=== PATIENT | female | born 1975 | race Caucasian/White ===

== ENCOUNTER 2018-03-20 11:21 | Emergency (ER) | payer SELFPAY ==
[2016-01-29 10:39] VITALS: Wt 77.1 kg
[~2018-03-20 11:21] MED LIST: DIA5 PO; HYDR-4309 PO; IBUP-1671 PO; MULT-859 PO; NIC10R INH; PROM-110 PO; TRAZ150T8 PO
[2018-03-20] MEDS ORDERED: ALPR-429 PO (12:14)
--- NOTE | 2018-03-20 12:15 | ER Report ---
History and Physical Time Seen By MD: 11:55 Hx. of Stated Complaint: pt reports a lot of stress in life, states she is withdrawing from alcohol- anxiety HPI/ROS CHIEF COMPLAINT: Anxiety HISTORY OF PRESENT ILLNESS: Patient is a 42-year-old female with no significant past medical history who presents to the emergency department with situational anxiety and depression. Patient states that she recently has not been sleeping well. She has moved in with her fianc who apparently snores she is also describing anxiety and some concerns about alcohol use. She feels anxious and depressed but denies any suicidal or homicidal ideation. Patient is being followed by a counselor and they are considering starting a mood stabilizer. REVIEW OF SYSTEMS: Respiratory: No cough, no dyspnea. Cardiovascular: No chest pain, no palpitations. Gastrointestinal: No vomiting, no abdominal pain. Musculoskeletal: No back pain. Allergies: Coded Allergies: No Known Drug Allergies (Unverified , 03/20/18) Home Meds Active Scripts Alprazolam (XANAX) 0.5 Mg Tablet, 1 TAB PO TID for anxiety, #20 TAB 0 Refills Prov:WARREN NESBITT MD 03/20/18 Past Medical/Surgical History Noncontributory towards this chief complaint Hx Smoking: Yes (1 PPD FOR 25 YEARS) Smoking Status: Current: Every Day Smoker Exposure to Second Hand Smoke?: Yes Hx Substance Use Disorder: No Hx Alcohol Use: No Constitutional Vital Sign - Last 24 Hours 03/20/18 11:35 Temp 97.4 Pulse 93 Resp 18 B/P (MAP) 141/88 Pulse Ox 99 O2 Delivery Room Air Physical Exam General Appearance: The patient is alert, has no immediate need for airway protection and no current signs of toxicity. Eyes: Pupils equal and round no injection. Respiratory: Chest is non tender, lungs are clear to auscultation. Cardiac: regular rate and rhythm Gastrointestinal: Abdomen is soft and non tender, no masses, bowel sounds normal. Musculoskeletal: Neck: Neck is supple and non tender. Extremities have full range of motion and are non tender. Skin: No rashes or lesions. Psychiatric: Anxious/depressed affect congruent with mood. No suicidal or homicidal ideation. No audiovisual hallucinations. Patient does not seem to be responding to any internal stimuli. Medical Decision Making ED Course/Re-evaluation ED Course Patient with situational anxiety and depression. Patient does have follow-up as an outpatient with a counselor is also some discussion of starting a mood stabilizer which I recommend. In the interim we'll prescribe a short course of Xanax for severe anxiety as needed. Decision to Disposition Date: Mar 20, 2018 Decision to Disposition Time: 12:12 Depart Departure Latest Vital Signs Vital Signs Date Time Temp Pulse Resp B/P (MAP) Pulse Ox O2 Delivery O2 Flow Rate FiO2 03/20/18 11:35 97.4 93 18 141/88 99 Room Air Impression: Primary Impression: Anxiety disorder, unspecified Condition: Improved Disposition: HOME OR SELF-CARE New Scripts Alprazolam (XANAX) 0.5 Mg Tablet 1 TAB PO TID for anxiety, #20 TAB 0 Refills Prov: WARREN NESBITT MD 03/20/18 Patient Instructions: Anxiety (DC) Problem Qualifiers Primary Impression: Anxiety disorder, unspecified Anxiety disorder type: unspecified anxiety disorder Qualified Codes: F41.9 - Anxiety disorder, unspecified WARREN NESBITT MD Mar 20, 2018 12:15
[2018-03-20 12:26] VITALS: BP 136/84
== END 2018-03-20 12:26 | disposition home or self-care (01) ==
LOC: ER 11:31
DX: F41.9 Anxiety disorder, unspecified (principal); F17.200 Nicotine dependence, unspecified, uncomplicated
CPT/HCPCS: 99283

== ENCOUNTER 2018-11-03 23:53 | Emergency (ER) | payer SELFPAY ==
[2016-01-29 10:39] VITALS: Wt 77.1 kg
[~2018-11-03 23:53] MED LIST changes: +ALPR-429 PO; -HYDR-4309 PO; +HYDR-653 PO
[2018-11-04] MEDS ORDERED: THIAMINE HCL(*) 200 MG/2 ML IN 100 MG, FOLIC ACID(*) 50 MG/10 ML INJ 1 MG, MULTIVITAMIN... IV ONE (00:07)
--- NOTE | 2018-11-04 00:13 | ER Report ---
History and Physical Time Seen By MD: 00:05 Hx. of Stated Complaint: PT REPORTS HER DAD A WEEK AGO AND PT STARTED DRINKING AGAIN. PT WANTS TO DETOX. HPI/ROS CHIEF COMPLAINT: Requesting detox HISTORY OF PRESENT ILLNESS: 43-year-old female presents with acute alcohol withdrawal symptoms. Patient's been vomiting. Patient began drinking last when her father . She's been unable to stop. Patient's been drinking vodka last drink was 1 hour prior to arrival. Patient has 2 previous admissions to [facility] for detox 10/2015 and 01/2016 each lasting a few days. REVIEW OF SYSTEMS: Respiratory: No cough, no dyspnea. Cardiovascular: No chest pain, no palpitations. Gastrointestinal: No vomiting, no abdominal pain. Musculoskeletal: No back pain. Allergies: Coded Allergies: No Known Drug Allergies (Unverified , 11/04/18) Home Meds Discontinued Scripts Alprazolam (XANAX) 0.5 Mg Tablet, 1 TAB PO TID for anxiety, #20 TAB 0 Refills Prov:WARREN NESBITT MD 03/20/18 Past Medical/Surgical History Hypertension, ran out of meds Hx Smoking: Yes (1 PPD FOR 25 YEARS) Smoking Status: Current: Every Day Smoker Exposure to Second Hand Smoke?: Yes Hx Substance Use Disorder: No Hx Alcohol Use: No Constitutional Vital Sign - Last 24 Hours 11/03/18 11/04/18 11/04/18 11/04/18 23:59 00:04 00:38 00:43 Temp 98.4 Pulse 85 92 89 Resp 16 B/P (MAP) 121/93 121/93 (102) Pulse Ox 93 93 91 O2 Delivery Room Air 11/04/18 11/04/18 11/04/18 11/04/18 01:09 01:13 01:28 01:43 Pulse 82 93 83 B/P (MAP) 138/96 (110) Pulse Ox 94 95 89 11/04/18 01:52 Pulse Ox 89 Intake and Output 11/03/18 11/03/18 11/04/18 15:00 23:00 07:00 Intake Total 1015.2 ml Balance 1015.2 ml Physical Exam Vital signs stable, afebrile, pulse ox normal General Appearance: The patient is alert, has no immediate need for airway protection and no current signs of toxicity. Mild distress, alert and oriented HEENT: Pupils equal and round no injection. Oropharynx without redness or exudate, heavy odor of EtOH Respiratory: Chest is non tender, lungs are clear to auscultation. Cardiac: regular rate and rhythm Gastrointestinal: Abdomen is soft and non tender, no masses, bowel sounds normal. Musculoskeletal: Neck: Neck is supple and non tender. Extremities have full range of motion and are non tender. Skin: No rashes or lesions. DIFFERENTIAL DIAGNOSIS: After history and physical exam differential diagnosis was considered for depression including functional and major depression, situational depression, medication side effect, drugs and alcohol abuse/withdrawal. Medical Decision Making Data Points Result Diagram: 11/04/18 0025 11/04/18 0025 Laboratory Hematology Test 11/04/18 00:25 11/04/18 01:12 Red Blood Count 5.28 M/uL (4.17-5.56) Mean Corpuscular Volume 97.4 fL (80.0-96.0) Mean Corpuscular Hemoglobin 33.8 pg (26.0-33.0) Mean Corpuscular Hemoglobin Concent 34.7 g/dL (32.0-36.0) Red Cell Distribution Width 13.6 % (11.5-14.5) Mean Platelet Volume 8.6 fL (7.2-11.1) Neutrophils (%) (Auto) 64.0 % (39.4-72.5) Lymphocytes (%) (Auto) 26.6 % (17.6-49.6) Monocytes (%) (Auto) 3.4 % (4.1-12.4) Eosinophils (%) (Auto) 3.6 % (0.4-6.7) Basophils (%) (Auto) 2.4 % (0.3-1.4) Nucleated RBC Relative Count (auto) 0.3 /100WBC Neutrophils # (Auto) 5.7 K/uL (2.0-7.4) Lymphocytes # (Auto) 2.4 K/uL (1.3-3.6) Monocytes # (Auto) 0.3 K/uL (0.3-1.0) Eosinophils # (Auto) 0.3 K/uL (0.0-0.5) Basophils # (Auto) 0.2 K/uL (0.0-0.1) Nucleated RBC Absolute Count (auto) 0.02 K/uL Sodium Level 144 mmol/L (137-145) Potassium Level 3.9 mmol/L (3.5-5.0) Chloride Level 109 mmol/L (98-107) Carbon Dioxide Level 21 mmol/L (22-31) Blood Urea Nitrogen 11 mg/dl (7-18) Creatinine 0.80 mg/dl (0.52-1.04) Glomerular Filtration Rate Calc > 60.0 Random Glucose 97 mg/dl (75-110) Calcium Level 9.2 mg/dl (8.4-10.2) Magnesium Level 2.2 mg/dl (1.7-2.2) Total Bilirubin 0.3 mg/dl (0.2-1.3) Aspartate Amino Transf (AST/SGOT) 48 U/L (0-35) Alanine Aminotransferase (ALT/SGPT) 37 U/L (0-56) Alkaline Phosphatase 74 U/L (0-126) Total Protein 8.1 g/dl (6.3-8.2) Albumin 4.8 g/dl (3.5-5.0) Salicylates Level < 10 mg/L Salicylate Last Dose Date unk Acetaminophen Level < 10 ug/ml Serum Alcohol 323 mg/dl Urine Color Yellow Urine Clarity Slightly-cloudy Urine pH 5.0 pH (4.8-9.5) Urine Specific Morenci 1.006 Urine Protein Negative mg/dL (NEGATIVE) Urine Glucose (UA) Negative mg/dL (NEGATIVE) Urine Ketones Negative mg/dL (NEGATIVE) Urine Blood Negative (NEGATIVE) Urine Nitrite Negative (NEGATIVE) Urine Bilirubin Negative (NEGATIVE) Urine Urobilinogen Negative mg/dL (0.2-1.9) Urine Leukocyte Esterase Trace (NEGATIVE) Urine RBC 2 /HPF (0-2/HPF) Urine WBC 2 /HPF (0-5/HPF) Urine Squamous Epithelial Cells Many /LPF (</=FEW) Urine Amorphous Crystals Few /HPF Urine Bacteria Few /HPF (NONE-FEW) Urine Mucus None /HPF (NONE-FEW) Urine HCG, Qualitative Negative (NEGATIVE) Urine Opiates Screen Negative Urine Barbiturates Screen Negative Ur Tricyclic Antidepressants Screen Negative Urine Phencyclidine Screen Negative Urine Amphetamines Screen Negative Urine Benzodiazepines Screen Negative Urine Cocaine Screen Negative Urine Cannabinoids Screen Negative Chemistry Test 11/04/18 00:25 11/04/18 01:12 White Blood Count 8.9 k/uL (4.5-11.0) Red Blood Count 5.28 M/uL (4.17-5.56) Hemoglobin 17.9 g/dL (12.0-16.0) Hematocrit 51.5 % (34.0-47.0) Mean Corpuscular Volume 97.4 fL (80.0-96.0) Mean Corpuscular Hemoglobin 33.8 pg (26.0-33.0) Mean Corpuscular Hemoglobin Concent 34.7 g/dL (32.0-36.0) Red Cell Distribution Width 13.6 % (11.5-14.5) Platelet Count 201 K/uL (150-450) Mean Platelet Volume 8.6 fL (7.2-11.1) Neutrophils (%) (Auto) 64.0 % (39.4-72.5) Lymphocytes (%) (Auto) 26.6 % (17.6-49.6) Monocytes (%) (Auto) 3.4 % (4.1-12.4) Eosinophils (%) (Auto) 3.6 % (0.4-6.7) Basophils (%) (Auto) 2.4 % (0.3-1.4) Nucleated RBC Relative Count (auto) 0.3 /100WBC Neutrophils # (Auto) 5.7 K/uL (2.0-7.4) Lymphocytes # (Auto) 2.4 K/uL (1.3-3.6) Monocytes # (Auto) 0.3 K/uL (0.3-1.0) Eosinophils # (Auto) 0.3 K/uL (0.0-0.5) Basophils # (Auto) 0.2 K/uL (0.0-0.1) Nucleated RBC Absolute Count (auto) 0.02 K/uL Glomerular Filtration Rate Calc > 60.0 Calcium Level 9.2 mg/dl (8.4-10.2) Magnesium Level 2.2 mg/dl (1.7-2.2) Total Bilirubin 0.3 mg/dl (0.2-1.3) Aspartate Amino Transf (AST/SGOT) 48 U/L (0-35) Alanine Aminotransferase (ALT/SGPT) 37 U/L (0-56) Alkaline Phosphatase 74 U/L (0-126) Total Protein 8.1 g/dl (6.3-8.2) Albumin 4.8 g/dl (3.5-5.0) Salicylates Level < 10 mg/L Salicylate Last Dose Date unk Acetaminophen Level < 10 ug/ml Serum Alcohol 323 mg/dl Urine Color Yellow Urine Clarity Slightly-cloudy Urine pH 5.0 pH (4.8-9.5) Urine Specific Morenci 1.006 Urine Protein Negative mg/dL (NEGATIVE) Urine Glucose (UA) Negative mg/dL (NEGATIVE) Urine Ketones Negative mg/dL (NEGATIVE) Urine Blood Negative (NEGATIVE) Urine Nitrite Negative (NEGATIVE) Urine Bilirubin Negative (NEGATIVE) Urine Urobilinogen Negative mg/dL (0.2-1.9) Urine Leukocyte Esterase Trace (NEGATIVE) Urine RBC 2 /HPF (0-2/HPF) Urine WBC 2 /HPF (0-5/HPF) Urine Squamous Epithelial Cells Many /LPF (</=FEW) Urine Amorphous Crystals Few /HPF Urine Bacteria Few /HPF (NONE-FEW) Urine Mucus None /HPF (NONE-FEW) Urine HCG, Qualitative Negative (NEGATIVE) Urine Opiates Screen Negative Urine Barbiturates Screen Negative Ur Tricyclic Antidepressants Screen Negative Urine Phencyclidine Screen Negative Urine Amphetamines Screen Negative Urine Benzodiazepines Screen Negative Urine Cocaine Screen Negative Urine Cannabinoids Screen Negative Toxicology Test 11/04/18 00:25 11/04/18 01:12 Salicylates Level < 10 mg/L Salicylate Last Dose Date unk Acetaminophen Level < 10 ug/ml Serum Alcohol 323 mg/dl Urine Opiates Screen Negative Urine Barbiturates Screen Negative Ur Tricyclic Antidepressants Screen Negative Urine Phencyclidine Screen Negative Urine Amphetamines Screen Negative Urine Benzodiazepines Screen Negative Urine Cocaine Screen Negative Urine Cannabinoids Screen Negative Urinalysis Test 11/04/18 01:12 Urine Color Yellow Urine Clarity Slightly-cloudy Urine pH 5.0 pH (4.8-9.5) Urine Specific Morenci 1.006 Urine Protein Negative mg/dL (NEGATIVE) Urine Glucose (UA) Negative mg/dL (NEGATIVE) Urine Ketones Negative mg/dL (NEGATIVE) Urine Blood Negative (NEGATIVE) Urine Nitrite Negative (NEGATIVE) Urine Bilirubin Negative (NEGATIVE) Urine Urobilinogen Negative mg/dL (0.2-1.9) Urine Leukocyte Esterase Trace (NEGATIVE) Urine RBC 2 /HPF (0-2/HPF) Urine WBC 2 /HPF (0-5/HPF) Urine Squamous Epithelial Cells Many /LPF (</=FEW) Urine Amorphous Crystals Few /HPF Urine Bacteria Few /HPF (NONE-FEW) Urine Mucus None /HPF (NONE-FEW) Urine HCG, Qualitative Negative (NEGATIVE) ED Course/Re-evaluation Clinical Indication for ER IV: Hydration, IV Access ED Course Patient was admitted to an examination room. H&P was done. The differential diagnoses was considered. Patient with heavy week of drinking since her father last . Patient tried to stop on her own at home. She was having horrible symptoms of withdrawal and vomiting. She now returns to the hospital requesting admission for medical detox. Patient was treated here in the emergency department with a banana bag. Her blood alcohol returned at 323. Her MCV was mildly elevated. 11/04/2018 1:45:01 am case discussed with Grazyna Live nurse practitioner a behavioral health who accepts the patient for medical detox Decision to Disposition Date: Nov 04, 2018 Decision to Disposition Time: 00:13 Depart Departure Latest Vital Signs Vital Signs Date Time Temp Pulse Resp B/P (MAP) Pulse Ox O2 Delivery O2 Flow Rate FiO2 11/04/18 01:52 89 11/04/18 01:43 83 11/04/18 01:09 138/96 (110) 11/03/18 23:59 98.4 16 Room Air Impression: Primary Impression: Alcohol use disorder, severe, dependence Additional Impression: Alcohol withdrawal Condition: Improved Disposition: XFER TO [facility] Problem Qualifiers Additional Impression: Alcohol withdrawal Complication of substance-induced condition: uncomplicated Qualified Codes: F10.230 - Alcohol dependence with withdrawal, uncomplicated NARENDRA DARLING DO Nov 04, 2018 00:13
[2018-11-04 00:45] LABS: PLATELET COUNT, AUTOMATED 201 K/uL (150-450)
[2018-11-04 01:09] VITALS: BP 138/96
== END 2018-11-04 02:23 ==
LOC: ER 11-04 00:10
DX: F10.230 Alcohol dependence with withdrawal, uncomplicated (principal); Y90.7 Blood alcohol level of 200-239 mg/100 ml; I10 Essential (primary) hypertension
CPT/HCPCS: 80305; 80320; 80329; 81001; 81025; 83735; 84443; 85025; 96365; 99284; J3411; J3475; J7030; 82040; 82247; 82310; 82374; 82435; 82565; 82947; 84075; 84132; 84155; 84295; 84450; 84460; 84520

== ENCOUNTER 2018-11-04 02:10 | Inpatient (IN) | payer SELFPAY ==
[2016-01-29 10:39] VITALS: Ht 177.8 cm; Wt 79.4 kg
[~2018-11-04] VITALS: Ht 177.8 cm; Wt 79.4 kg
[2018-11-04] VITALS (7 sets, daily range): BP systolic 103–153; BP diastolic 77–102
[2018-11-04] MEDS ORDERED: DIAZEPAM 10 MG TAB PO PRN (02:20)
[2018-11-04] MEDS ORDERED: NICOTINE CARTRIDGE 1 EA PO PRN (03:05)
[2018-11-04] MEDS ORDERED: ONDANSETRON 4 MG ODT TABDP SL ONE (03:08)
[2018-11-04] MEDS ORDERED: ONDANSETRON 4 MG TAB PO PRN (03:10)
[2018-11-04] MEDS: NICOTINE INH SYSTEM 10 MG/INH INH PRN ×3 (03:14→17:26)
[2018-11-04] MEDS: DIAZEPAM 10 MG TAB PO PRN ×4 (03:15→18:21)
[2018-11-04] MEDS: ONDANSETRON 4 MG ODT TABDP SL PRN ×2 (10:58→18:28)
[2018-11-04] MEDS ORDERED: LOPERAMIDE HCL 2 MG CAP PO ONE (11:00)
[2018-11-04] MEDS: LOPERAMIDE HCL 2 MG CAP PO PRN ×2 (11:47→16:03)
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
[2018-11-05 08:00] VITALS: BP 132/94
[2018-11-05] MEDS: NICOTINE INH SYSTEM 10 MG/INH INH PRN ×6 (09:34→19:19)
[2018-11-05 12:37] VITALS: BP 128/88
[2018-11-05] MEDS: ONDANSETRON 4 MG ODT TABDP SL PRN (12:47)
[2018-11-05] MEDS: hydrOXYzine PAMOATE 25 MG CAP PO PRN (12:48)
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
[2018-11-05 17:15] VITALS: BP 138/92
[2018-11-05] MEDS: LOPERAMIDE HCL 2 MG CAP PO PRN (17:33)
[2018-11-05] MEDS ORDERED: traZODone HCL 50 MG TAB PO SCH (21:00)
[2018-11-06 06:05] VITALS: BP 103/80
[2018-11-06] MEDS: NICOTINE INH SYSTEM 10 MG/INH INH PRN ×3 (08:18→12:24)
[2018-11-06] MEDS: IBUPROFEN 200 MG TAB PO PRN ×2 (08:29→12:56)
[2018-11-06 08:40] VITALS: BP 116/88
[2018-11-06 12:50] VITALS: BP 110/87
[2018-11-06] MEDS: hydrOXYzine PAMOATE 25 MG CAP PO PRN (14:30)
[2018-11-06] MEDS ORDERED: TRAM100T8 PO ×2 (16:06)
[2018-11-06] MEDS ORDERED: NIC10R INH (16:10)
[2018-11-06] MEDS ORDERED: HYDR50CA47 PO (16:13)
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
== END 2018-11-06 16:54 | disposition home or self-care (01) | DRG 897 ==
LOC: BHS 02:10
PROVIDERS: ADMIT Nurse Practitioner Psychiatric/Mental Health; ATTEND Nurse Practitioner Psychiatric/Mental Health
DX: F10.230 Alcohol dependence with withdrawal, uncomplicated (principal); F90.9 Attention-deficit hyperactivity disorder, unspecified type; F43.12 Post-traumatic stress disorder, chronic; D75.1 Secondary polycythemia; E78.00 Pure hypercholesterolemia, unspecified; T70.29XA Other effects of high altitude, initial encounter; F17.210 Nicotine dependence, cigarettes, uncomplicated; F32.9 Major depressive disorder, single episode, unspecified; Y90.8 Blood alcohol level of 240 mg/100 ml or more; Z78.0 Asymptomatic menopausal state; Z63.4 Disappearance and death of family member; Z81.1 Family history of alcohol abuse and dependence; Z81.8 Family history of other mental and behavioral disorders; Z73.3 Stress, not elsewhere classified; Z59.8 Other problems related to housing and economic circumstances; Z63.79 Other stressful life events affecting family and household
CPT/HCPCS: 36415; 82465; 83718; 84478; Q0177; S0119

== ENCOUNTER 2019-02-18 14:01 | Emergency (ER) | payer SELFPAY ==
[2016-01-29 10:39] VITALS: Wt 74.8 kg
[~2019-02-18 14:01] MED LIST changes: +HYDR50CA47 PO; +TRAM100T8 PO
[2019-02-18] MEDS ORDERED: TRAZ100T31 PO (14:07)
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
[2019-02-18 15:49] VITALS: BP 166/90
--- NOTE | 2019-02-18 16:05 | RADIOLOGY IMAGING REPORT ---
FACILITY: [facility] PATIENT NAME: Lily Hernandez : 1975 MR: [id number] V: [id number] EXAM DATE: ORDERING PHYSICIAN: ANGE ARNOLD TECHNOLOGIST: Location: [facility] Patient: Lily Hernandez : 1975 Visit/Account:[id number] Date of Sevice: 02/18/2019 Exam type: US VENOUS LOWER EXT LT History: ?DVT Comparison: None. Findings: The left lower chimney veins were imaged including the left common femoral vein superficial femoral v ein popliteal vein posterior tibial vein peroneal vein anterior tibial vein revealing no evidence of intraluminal thrombi. The veins are compressible and demonstrated augmentation. The distal greater saphenous vein did however contain thrombus from the mid calf inferiorly. IMPRESSION: 1. No sonographic evidence DVT involving the left lower extremity veins There are superficial thrombus in the distal left greater saphenous vein from the mid calf distally. Report Dictated By: Leena Becerril MD at 02/18/2019 3:56 PM Report E-Signed By: Leena Becerril MD at 02/18/2019 3:58 PM WSN:[id number]
== END 2019-02-18 16:30 | disposition home or self-care (01) ==
LOC: ER 14:11
DX: I82.812 Embolism and thrombosis of superficial veins of left lower extremity (principal)
CPT/HCPCS: 99284